=== PATIENT | male | born 1940 | race Caucasian/White ===

== ENCOUNTER 2016-04-29 12:14 | Emergency (ER) | payer OTHER ==
[2016-04-29 12:27] VITALS: TEMP 98.2
--- NOTE | 2016-04-29 14:15 | UCPHY ---
H & P Patient Type: Established Chief Complaint Nursing Narrative: lower abdomen pain x 4 weeks. worse in AM then gets better through day. denies N/V/D/fevers. Time Seen by Provider: 04/29/16 14:00 HPI/ROS: HPI: 75-year-old male presents to emergency department with chief concern lower abdominal pain x3 weeks. Worse in the morning, improves by evening. No aggravating or alleviating factors. Pain is 3/10 and aching. Denies fever, chills, myalgias, URI symptoms, shortness of breath, chest pain, nausea, vomiting. Has intermittent loose stools from previous colectomy. ROS:10 point review of systems is negative other than as stated in HPI Source: Patient Exam Limitations: No limitations - Personal History Current Tetanus Diphtheria and Acellular Pertussis (TDAP): Yes Tetanus Vaccine Date: WITHIN 10 YRS - Medical/Surgical History Hx Asthma: No Hx Chronic Respiratory Disease: No Hx Diabetes: No Hx Cardiac Disease: No Hx Renal Disease: No Hx Cirrhosis: No Hx Alcoholism: No Hx HIV/AIDS: No Hx Splenectomy or Spleen Trauma: No Other PMH: diverticulitis,partial colectomy, DVT with pulmonary embolus Thyroid disorder - Family History Significant Family History: No pertinent family hx - Social History Smoking Status: Never smoked Alcohol Use: Rarely Drug Use: None Additional Social History: - Physical Exam Exam: Vital signs stable, reviewed by me General: Awake, alert, calm, cooperative. No acute distress. Head: Normalocephalic. Atraumatic. EENT: PERRLA. EOMI. No pallor or injection. Anicteric. No nystagmus. No injection. TMs intact bilaterally with normal landmarks. No rhinnorhea, nasal passages clear. Oropharynx without redness, exudates, or lesions. Tonsils 2+ bilaterally, no exudates. Neck: Supple, nontender. No lymphadenopathy. Full range of motion. No meningismus. Respiratory: Breathing unlabored. Breath sounds equal bilaterally and clear to auscultation. No adventitious sounds. CV: Chest nontender, atraumatic. Heart rate regular. No murmur, distal pulses 2+ bilaterally. Brisk cap refill all extremities. GI: Abdomen soft, moderate left lower quadrant tenderness to deep palpation. Negative rebound. No guarding. Bowel sounds normoactive and positive x4 quadrants. : No suprapubic tenderness. No CVA or flank tenderness. Neuro: Alert. Oriented x 3. Speech clear. Nonfocal cranial nerves throughout. Sensation intact all extremities. Skin: Skin warm, dry, intact. No rashes. Skin turgor normal. Extremities: Full range of motion in all 4 extremities. Strength 5+ all extremities. Constitutional: Initial Vital Signs Temperature (C) 36.8 C 04/29/16 12:17 Heart Rate 61 04/29/16 12:17 Respiratory Rate 14 04/29/16 12:17 Blood Pressure 138/74 H 04/29/16 12:17 O2 Sat (%) 95 04/29/16 12:17 O2 Delivery Mode Room Air Allergies/Adverse Reactions: No Known Allergies Allergy (Unverified 04/29/16 12:27) Home Medications: Medication Instructions Recorded Levothyroxine [Synthroid 50 mcg 50 mcg PO DAILY06 01/29/15 (*)] Rivaroxaban [Xarelto 10mg (*)] 20 mg PO DAILY 01/29/15 Herbals/Supplements -Info Only 1 ea PO DAILY 04/14/16 Medical Decision Making - Diagnostics Imaging: CT Scan of the Abdomen and Pelvis (With Contrast) Indication: Abdominal pain. History of diverticulitis. Technique: No oral or rectal contrast. 90 mL of Isovue 300 were given intravenously by machine power injection. Multidetector helical CT imaging was performed from the diaphragm to the symphysis pubis. Dose reduction techniques were utilized. Comparison: CT angiogram chest dated May 11, 2011 Findings: Scattered diverticula are present throughout the descending and sigmoid colon. No colonic wall thickening, pericolonic edema, free fluid, abscess, lymphadenopathy or mass. The appendix cannot be identified. Suture material is present at the hepatic flexure. No dilated loops of small or large bowel. The liver, spleen, pancreas, gallbladder, adrenal glands, and kidneys are normal. Benign nodular thickening in the left adrenal gland is unchanged since 2011. No hydronephrosis or ureteral calculi. A 2 mm nonobstructing calculus resides in the superior right intrarenal collecting system. The urinary bladder is normal volume. The prostate gland is minimally enlarged. The abdominal aorta is normal caliber mild calcified plaque. Lung bases are clear except for minimal linear subpleural scarring in the left lower lobe. No bone lesions. Impression: 1. Diverticulosis of the descending and sigmoid colon. No acute diverticulitis, free fluid or abscess. 2. Right nephrolithiasis. No ureteral calculi or hydroureteronephrosis. Findings discussed with Misti Duarte NP at 04/29/2016 15:25. Dictated By: Shalom Torres MD ED Course/Re-evaluation: 1400:75-year-old male presents to [facility] with lower abdominal pain x3 weeks. He has a history of diverticulitis. He has a history of C colon CA with colectomy. IV lab started. Urinalysis obtained. CT abdomen pelvis pending. Patient comfortable and declines pain medication presently. 1445: White count 6660. BUN and creatinine within normal. Urinalysis negative. CT abdomen pelvis pending. Patient rests comfortably. Vitals are stable. 16:00 CT abdomen pelvis negative for evidence of acute diverticulitis or other acute finding. Patient has been counseled and will follow up with primary care tomorrow for recheck without fail. Counseled regarding symptoms for which to return should they worsen. Vital signs are stable. Differential Diagnosis: Differential includes but is not limited to diverticulitis, constipation, mesenteric ischemia, UTI - Data Points Laboratory Results: Laboratory Results 04/29/16 14:14 04/29/16 14:14 04/29/16 04/29/16 04/29/16 14:14 14:14 14:03 WBC 6.66 10^3/uL 10^3/uL (3.80-9.50) RBC 5.50 10^6/uL 10^6/uL (4.40-6.38) Hgb 17.2 g/dL g/dL (13.7-17.5) Hct 49.3 % % (40.0-51.0) MCV 89.6 fL fL (81.5-99.8) MCH 31.3 pg pg (27.9-34.1) MCHC 34.9 g/dL g/dL (32.4-36.7) RDW 12.5 % % (11.5-15.2) Plt Count 161 10^3/uL 10^3/uL (150-400) MPV 10.1 fL fL (8.7-11.7) Neut % (Auto) 58.8 % % (39.3-74.2) Lymph % (Auto) 28.5 % % (15.0-45.0) [place] % (Auto) 8.0 % % (4.5-13.0) Eos % (Auto) 3.5 % % (0.6-7.6) Baso % (Auto) 0.9 % % (0.3-1.7) Nucleat RBC Rel Count 0.0 % % (0.0-0.2) Absolute Neuts (auto) 3.92 10^3/uL 10^3/uL (1.70-6.50) Absolute Lymphs (auto) 1.90 10^3/uL 10^3/uL (1.00-3.00) Absolute Monos (auto) 0.53 10^3/uL 10^3/uL (0.30-0.80) Absolute Eos (auto) 0.23 10^3/uL 10^3/uL (0.03-0.40) Absolute Basos (auto) 0.06 10^3/uL 10^3/uL (0.02-0.10) Absolute Nucleated RBC 0.00 10^3/uL 10^3/uL (0-0.01) Immature Gran % 0.3 % % (0.0-1.1) Immature Gran # 0.02 10^3/uL 10^3/uL (0.00-0.10) Sodium 140 mEq/L mEq/L (134-144) Potassium 4.2 mEq/L mEq/L (3.5-5.2) Chloride 102 mEq/L mEq/L (97-110) Carbon Dioxide 25 mEq/l mEq/l (22-31) Anion Gap 13 mEq/L mEq/L (8-16) BUN 19 mg/dL mg/dL (7-23) Creatinine 1.0 mg/dL mg/dL (0.7-1.3) Estimated GFR > 60 Glucose 94 mg/dL mg/dL (70-100) Calcium 8.7 mg/dL mg/dL (8.5-10.4) Urine Color YELLOW Urine Appearance HAZY Urine pH 6.0 (5.0-7.5) Ur Specific [place] 1.025 (1.002-1.030) Urine Protein NEGATIVE (NEGATIVE) Urine Ketones NEGATIVE (NEGATIVE) Urine Blood NEGATIVE (NEGATIVE) Urine Nitrate NEGATIVE (NEGATIVE) Urine Bilirubin NEGATIVE (NEGATIVE) Urine Urobilinogen 0.2 EU EU (0.2-1.0) Ur Leukocyte Esterase NEGATIVE (NEGATIVE) Urine Glucose NEGATIVE (NEGATIVE) Departure - Departure Disposition: Home, Routine, Self-Care Clinical Impression: Abdominal pain Condition: Good Instructions: Acute Abdominal Pain (ED) Additional Instructions: Plan: Follow up at [facility] tomorrow for recheck without fail--When you call to schedule appointment, please let the office know you are an "ER follow up" appointment" If your pain worsens overnight, go to emergency department Referrals: Angie Solorzano PROVER [Primary Care Provider] - As per Instructions - PQRS PQRS Measurement: 134: Depression screening and followup, PRIME MD-PHQ2 (12 years and older) Over the last 2 weeks, how often have you been bothered by any of the following problems? 1. Feeling down, depressed, or hopeless? 2. Little interest or pleasure in doing things? Patient answered no to both 1 and 2 130: Documentation of medications. Reviewed all patient medications, doses, route and frequency. 226: Do you smoke? No 47: 65 and older: Advanced care planning. Declines 51: 18 years old and older with diagnosis of COPD, spirometry performance. Patient has no history of COPD 52: 18 years old and older with COPD and symptoms of COPD or FEV1<60% no history of COPD
[2016-04-29 14:16] LABS: COLOR YELLOW; LEUKOCYTE ESTERASE,URINE NEGATIVE (NEGATIVE); NITRITE,URINE NEGATIVE (NEGATIVE)
[2016-04-29 14:22] LABS: % IMMATURE GRANULYOCYTES 0.3 % (0.0-1.1); ABSOLUTE IMMATURE GRANULOCYTES 0.02 10^3/uL (0.00-0.10); ADD DIFF? NO; ADD MORPH? NO; ADD SCAN? NO; ATYPICAL LYMPHOCYTE FLAG 0 (0-99); FRAGMENT RBC FLAG 0 (0-99); HEMATOCRIT 49.3 % (40.0-51.0); HEMOGLOBIN 17.2 g/dL (13.7-17.5); LEFT SHIFT FLG 0 (0-99); LIPEMIA HEMOLYSIS FLAG 90 (0-99); MEAN CELL HEMOGLOBIN 31.3 pg (27.9-34.1); MEAN CELL HEMOGLOBIN CONCENTR. 34.9 g/dL (32.4-36.7); MEAN CELL VOLUME 89.6 fL (81.5-99.8); MEAN PLATELET VOLUME 10.1 fL (8.7-11.7); PLATELET CLUMPS FLAG 10 (0-99); PLATELET COUNT 161 10^3/uL (150-400); RED CELL DISTRIBUTION WIDTH 12.5 % (11.5-15.2)
[2016-04-29 14:35] LABS: ANION GAP 13 mEq/L (8-16); CALCIUM 8.7 mg/dL (8.5-10.4); CARBON DIOXIDE 25 mEq/l (22-31); CHLORIDE 102 mEq/L (97-110); GLOMERULAR FILTRATION RATE > 60; GLUCOSE 94 mg/dL (70-100); POTASSIUM 4.2 mEq/L (3.5-5.2); SODIUM 140 mEq/L (134-144)
[2016-04-29] MEDS ORDERED: IOPAMIDOL (ISOVUE-300) 100 ML BTL IV ONE (14:54)
[2016-04-29 15:48] VITALS: BP 124/75; PULSE 62; RESP 16; O2SAT 96
== END 2016-04-29 16:06 | disposition home or self-care (01) ==
LOC: CED 12:14
DX: R10.9 Unspecified abdominal pain (principal); K57.30 Diverticulosis of large intestine without perforation or abscess without bleeding; N20.0 Calculus of kidney; Z85.038 Personal history of other malignant neoplasm of large intestine
CPT/HCPCS: 74177; G0463; Q9967; 80048-PO; 81003-PO; 85025-PO; 99214-PO

== ENCOUNTER 2016-05-12 05:50 | Inpatient (IN) | payer OTHER ==
[2016-05-12] MEDS ORDERED: DEXAMETHASONE 4 MG/ML VIAL IVP ONE (06:00)
[2016-05-12] MEDS ORDERED: CHLORHEXIDINE GLUC HIBICLENS 118 ML BTL TP ONE (06:00)
[2016-05-12] MEDS ORDERED: TRANEXAMIC ACID 3,000 MG in NS 50 ML IRR ONE (06:00)
[2016-05-12] MEDS ORDERED: CEFAZOLIN 2 GM/DEXTR 100 ML IV ONE (06:00)
[2016-05-12] MEDS ORDERED: ROPI/epiNEPH/KETOROLAC JOINT COCKTAIL IU ONE (06:00)
[2016-05-12] MEDS ORDERED: ACETAMINOPHEN 325 MG TAB PO ONE (06:00)
[2016-05-12] MEDS ORDERED: FAMOTIDINE 20 MG TAB PO ONE (06:00)
[2016-05-12] MEDS ORDERED: DEXAMETHASONE 4 MG/ML VIAL ONE (06:05)
[2016-05-12] MEDS ORDERED: FAMOTIDINE 20 MG TAB ONE (06:06)
[2016-05-12] MEDS ORDERED: ACETAMINOPHEN 325 MG TAB ONE (06:06)
[2016-05-12] MEDS ORDERED: LIDOCAINE 1% 5 ML SDV ONE (06:06)
[2016-05-12] MEDS ORDERED: CEFAZOLIN 2 GM/DEXTROSE/100 ML BAG IV ONE (06:06)
[2016-05-12] MEDS ORDERED: SKIN ADHESIVE (DERMABOND) 1 EACH TP ONE (06:37)
[2016-05-12] MEDS ORDERED: TRANEXAMIC ACID 3,000 MG/50 ML BAG IRR ONE (06:38)
[2016-05-12] MEDS ORDERED: VANCOMYCIN 1 GM VIAL IV ONE ×3 (06:38→07:05)
[2016-05-12] MEDS ORDERED: MIDAZOLAM 2 MG/2 ML VIAL ONE (07:08)
[2016-05-12] MEDS ORDERED: LIDOCAINE 2% 5 ML SDV ONE (07:12)
[2016-05-12] MEDS ORDERED: PROPOFOL/EMULSION 500 MG/50 ML BOTTLE IV ONE (07:12)
[2016-05-12] MEDS ORDERED: diphenhydrAMINE 25 MG CAP PO PRN (07:29)
[2016-05-12] MEDS ORDERED: CYCLOBENZAPRINE 10 MG TAB PO PRN (07:29)
[2016-05-12] MEDS ORDERED: ONDANSETRON 4 MG/2 ML VIAL IVP PRN (07:29)
[2016-05-12] MEDS ORDERED: DIPHENOXYLATE/ATROPINE LOMOTIL 1 TAB PO PRN (07:29)
[2016-05-12] MEDS ORDERED: BISACODYL 10 MG SUPP PR PRN (07:29)
[2016-05-12] MEDS ORDERED: PROMETHAZINE HCL 25 MG SUPPR PR PRN (07:29)
[2016-05-12] MEDS ORDERED: POLYETHYLENE GLYCOL 3350 17 GM PKT PO PRN (07:29)
[2016-05-12] MEDS ORDERED: LACTULOSE 20 GM/30 ML UDCUP PO PRN (07:29)
[2016-05-12] MEDS ORDERED: ONDANSETRON DISINTEGRATING 4 MG TAB PO PRN (07:29)
[2016-05-12] MEDS ORDERED: METOCLOPRAMIDE 10 MG/2 ML VIAL IVP PRN (07:29)
[2016-05-12] MEDS ORDERED: TEMAZEPAM 15 MG CAP PO PRN (07:29)
[2016-05-12] MEDS ORDERED: PHARMACY PAIN CONSULT 1 EA MISC PRN (07:29)
[2016-05-12] MEDS ORDERED: MAGNESIUM HYDROXIDE 30 ML UDCUP PO PRN (07:29)
[2016-05-12] MEDS ORDERED: fentaNYL 100 MCG/2 ML INJ ONE (07:35)
[2016-05-12] MEDS ORDERED: epHEDrine SULFATE 10 MG/ML SYR ONE ×2 (07:44→08:16)
[2016-05-12] MEDS ORDERED: ROPIVACAINE HCL 150 MG/30 ML INJ ONE (08:09)
--- NOTE | 2016-05-12 08:37 | POSTOPPROG ---
Post Op Note Date of Operation: 05/12/16 Surgeon: Jose Juan Campbell Director Child Abuse Therapy: jerson campbell Anesthesiologist: dr. alexander Anesthesia: Spinal, Other (Specify) (adductor canal block) Pre-op Diagnosis: left knee OA Post-op Diagnosis: same Indication: left knee pain due to OA that failed conservative measures Procedure: L TKA Findings: severe knee OA Inf/Abcess present in the surg proc area at time of surgery?: No EBL: 50-100
[2016-05-12] MEDS: SENNOSIDES/DOCUSATE SODIUM TAB PO SCH ×2 (10:07→20:06)
[2016-05-12 11:02] VITALS: RESP 16
[2016-05-12] MEDS: LR 1,000 ML IV SCH ×2 (11:11→20:03)
[2016-05-12] MEDS: oxyCODONE IR 5 MG TAB PO PRN ×3 (12:26→23:31)
[2016-05-12] MEDS: ACETAMINOPHEN 325 MG TAB PO SCH ×3 (12:30→23:31)
[2016-05-12] MEDS: ceFAZolin 2 GM/DEXTROSE 100 ML IV SCH ×2 (14:14→21:31)
[2016-05-12] MEDS: FAMOTIDINE 20 MG TAB PO SCH (20:06)
[2016-05-13] MEDS: ACETAMINOPHEN 325 MG TAB PO SCH (05:10)
[2016-05-13 05:37] LABS: HEMATOCRIT 40.4 % (40.0-51.0)
[2016-05-13] MEDS ORDERED: LEVOTHYROXINE 50 MCG TAB PO SCH (06:00)
[2016-05-13 07:50] VITALS: BP 114/68; PULSE 51; TEMP 97.7; O2SAT 95
[2016-05-13] MEDS: oxyCODONE IR 5 MG TAB PO PRN (08:07)
[2016-05-13] MEDS: FAMOTIDINE 20 MG TAB PO SCH (08:08)
[2016-05-13] MEDS: SENNOSIDES/DOCUSATE SODIUM TAB PO SCH (08:08)
[2016-05-13] MEDS ORDERED: RIVAROXABAN 10 MG TAB PO SCH (09:00)
--- NOTE | 2016-05-13 09:58 | SOAPPROG ---
SOAP Progress Note Assessment/Plan: Assessment: is doing well POD 1 s/p L TKA 1. Pain management: pain is well controlled on oral pain meds 2. Anemia: level is expected initially postop. Asymptomatic, continue to monitor 3. VTE prophylaxis: Recommend xarelto daily. Cont SCDs and TEDs 4. D/c planning: d/c to home today most likely pending release from PT. Plan: 05/13/16 09:57 Objective: Vital Signs Temp Pulse Resp BP Pulse Ox 36.5 C 51 L 16 114/68 95 05/13/16 07:48 05/13/16 07:48 05/13/16 07:48 05/13/16 07:48 05/13/16 07:48 Laboratory Results 05/13/16 05:10 05/12/16 05/13/16 05/14/16 05:59 05:59 05:59 Intake Total 3275 Output Total 4860 175 Balance 525 -175 ICD10 Worksheet Patient Problems: Problems Problem Status Onset Primary localized osteoarthritis of left knee Acute
--- NOTE | 2016-05-13 15:46 | GOP ---
[f rep st] OPERATIVE REPORT DATE OF OPERATION: 05/12/2016 SURGEON: Ghada Leyva MD QUALITY ASSURANCE CLERK: MEGAN Sousa. ANESTHESIA: Spinal. PREOPERATIVE DIAGNOSIS: Left knee osteoarthritis. POSTOPERATIVE DIAGNOSIS: Left knee osteoarthritis. PROCEDURE PERFORMED: Left total knee arthroplasty. FINDINGS: ESTIMATED BLOOD LOSS: 30 cc. INDICATIONS: This is a 75-year-old male with severe and progressive pain and deformity of the left knee unresponsive to conservative care. Risks and benefits of the surgical intervention were explai anni in detail. DESCRIPTION OF PROCEDURE: The patient was brought to the operative room and placed on the table in the supine position. Spinal anesthesia was induced without difficulty. A pneumatic tourniquet was ap plied about the left proximal thigh, and the leg was prepped and draped in a sterile fashion. The le g junior was applied. After exsanguination by elevation the tourniquet was inflated to 275 mm of jackson cury. Incision was made anterior medial from the tibial tuberosity to a point 2 cm proximal to the superio r pole of the patella. Medial parapatellar arthrotomy was carried out from the superior pole of the patella and posteriorly in line with the fibers of the Type II VMO. The medial collateral ligament w as elevated and the infrapatellar fat pad was resected. The patella was everted and the articular surface was excised. A 32 mm patellar button was placed. T he distal femoral guide hole was drilled and the 6-degree alignment jordi was placed. A 10 mm distal f emoral cut was made without difficulty. Attention was turned to the tibia and a standard 9 mm cut based on the lateral tibial condyle was pe rformed. The tibial articular surface was excised without difficulty. Attention was turned back to the femur and a size 4 Triathlon femoral cutting block was positioned. Anterior, posterior, and chamfer cuts were made, followed by the intercondylar box cut. The knee was extended and the remnants of the medial and lateral meniscus were excised. The posterio r capsule was injected with ropivacaine, epinephrine and Toradol. A size 5 MIS mini-keel tibial tray was positioned. Trial reduction was then carried out. There was excellent range of motion, alignmen t, and stability using the 9 mm polyethylene. All trials were then removed. The joint was thoroughly irrigated and carefully dried. Two packages o f cement and 2 grams of vancomycin were mixed in the vacuum mixer and placed on the fixation surface s of all surfaces of the components. The components were implanted and all excess cement was thoroug hly removed. The permanent 9 mm X3 polyethylene was placed without difficulty. The tourniquet was deflated and all bleeders were coagulated. The wound was thoroughly irrigated and closed using interrupted sutures of 2-0 Vicryl for the joint capsule. The subcu was closed with 3-0 Vicryl and the skin with 4-0 Monocryl. Dermabond and Steri-Strips were applied followed by a compre ssive dressing. The patient was then moved from the operating room to the recovery room in good cond ition, having tolerated the procedure well. PATHOLOGY: Severe medial and patellofemoral osteoarthritis. /[id number]/MODL
== END 2016-05-13 11:33 | disposition home or self-care (01) | DRG 470 ==
LOC: F3N 05:50
PROVIDERS: ADMIT Orthopaedic Surgery; ATTEND Orthopaedic Surgery
PROC: 0SRD0J9 Replacement of Left Knee Joint with Synthetic Substitute, Cemented, Open Approach (ICD-10-PCS; principal; 2016-05-12 07:15)
DX: M17.12 Unilateral primary osteoarthritis, left knee (principal); E03.9 Hypothyroidism, unspecified; N40.0 Benign prostatic hyperplasia without lower urinary tract symptoms; Z79.01 Long term (current) use of anticoagulants; Z86.718 Personal history of other venous thrombosis and embolism; Z86.711 Personal history of pulmonary embolism; Z85.038 Personal history of other malignant neoplasm of large intestine; Z86.010 Personal history of colon polyps; Z86.12 Personal history of poliomyelitis
CPT/HCPCS: 97110-GP; 97116-GP; 97161-GP; 97165-GO; 97530-GP; C1713; G8978-GP-CI; G8979-GP-CI; G8980-GP-CI; G8987-GO-CI; G8988-GO-CI; G8989-GO-CI; J0171; J0690; J1100; J1885; J2250; J2704; J2795; J3010; J3370

== ENCOUNTER → 2017-02-15 | Outpatient (CLI) | payer OTHER | LOC: CIMAGING 09:28 | PROVIDERS: ATTEND Nurse Practitioner | DX: M19.011 Primary osteoarthritis, right shoulder (principal) | CPT/HCPCS: 73030-PO ==